=== PATIENT | female | born 1975 | race American Indian/Alaskan Native ===

== ENCOUNTER 2022-01-24 22:24 | Emergency (ER) | payer MEDICAID ==
--- NOTE | 2022-01-25 08:29 | Emergency Department Report ---
ED General Adult HPI - General Chief complaint: Dyspnea/Respdistress Stated complaint: WEAK/COLD SWEATS/CHEST PAIN PUI?: No Time Seen by Provider: 01/25/22 08:14 Source: patient Mode of arrival: Ambulatory Limitations: No Limitations - History of Present Illness Initial comments: Ms. Boykin is a 46-year-old -Stateless female that comes to the emergency room complaining of feeling weak. She states that she lives in a hotel. She endorses smoking. She has been sleeping since arrival in the ER which is now been several hours. She is ambulatory, nonfocal, no acute distress with normal vital signs. She denies fever or chills. She denies cough. Patient denies any chest pain. She denies shortness of breath. -: Gradual, hour(s) - Related Data Allergies Allergy/AdvReac Type Severity Reaction Status Date / Time Penicillins Allergy Hives Verified 01/25/22 00:37 ED Review of Systems ROS: Stated complaint: WEAK/COLD SWEATS/CHEST PAIN Other details as noted in HPI Comment: All other systems reviewed and negative ED Past Medical Hx - Past Medical History Previous Medical History?: Yes Hx Pulmonary Embolism: Yes Hx Asthma: Yes Additional medical history: CLOT IN THE LEGS in 2019. She has been taken off her Eliquis. - Surgical History Past Surgical History?: Yes Additional Surgical History: LEFT LEG SURGERY - Family History Family history: no significant - Social History Smoking Status: Current Every Day Smoker Substance Use Type: None ED Physical Exam - General Limitations: No Limitations General appearance: alert, in no apparent distress - Head Head exam: Present: atraumatic, normocephalic - Eye Eye exam: Present: normal appearance - ENT ENT exam: Present: mucous membranes moist - Neck Neck exam: Present: normal inspection - Respiratory Respiratory exam: Present: normal lung sounds bilaterally. Absent: respiratory distress - Cardiovascular Cardiovascular Exam: Present: regular rate, normal rhythm. Absent: systolic murmur, diastolic murmur, rubs, gallop - GI/Abdominal GI/Abdominal exam: Present: soft, normal bowel sounds - Extremities Exam Extremities exam: Present: normal inspection - Back Exam Back exam: Present: normal inspection - Neurological Exam Neurological exam: Present: alert, oriented X3 - Psychiatric Psychiatric exam: Present: normal affect, normal mood - Skin Skin exam: Present: warm, dry, intact, normal color. Absent: rash ED Course Vital Signs 01/25/22 01/25/22 01/25/22 00:31 08:34 11:54 Temperature 98.0 F Pulse Rate 80 78 82 Respiratory 18 16 Rate Blood Pressure 146/91 Blood Pressure 140/88 140/80 [Right] O2 Sat by Pulse 100 100 100 Oximetry ED Medical Decision Making - Lab Data Result diagrams: 01/25/22 08:49 01/25/22 08:49 - EKG Data -: EKG Interpreted by Sc EKG shows normal: sinus rhythm Rate: normal - EKG Data When compared to previous EKG there are: no significant change Interpretation: no acute changes - Radiology Data Radiology results: report reviewed, image reviewed No acute process - Medical Decision Making Lab Results 01/25/22 01/25/22 01/25/22 Range/Units 08:49 08:49 Unknown WBC 3.5 L (4.5-11.0) K/mm3 RBC 4.24 (3.65-5.03) M/mm3 Hgb 9.1 L (10.1-14.3) gm/dl Hct 30.1 L (30.3-42.9) % MCV 71 L (79-97) fl MCH 21 L (28-32) pg MCHC 30 (30-34) % RDW 16.7 H (13.2-15.2) % Plt Count 305 (140-440) K/mm3 Lymph % (Auto) 18.5 (13.4-35.0) % Davidson % (Auto) 15.1 H (0.0-7.3) % Eos % (Auto) 6.8 H (0.0-4.3) % Baso % (Auto) 0.6 (0.0-1.8) % Lymph # (Auto) 0.6 L (1.2-5.4) K/mm3 Davidson # (Auto) 0.5 (0.0-0.8) K/mm3 Eos # (Auto) 0.2 (0.0-0.4) K/mm3 Baso # (Auto) 0.0 (0.0-0.1) K/mm3 Seg Neutrophils % 59.0 (40.0-70.0) % Seg Neutrophils # 2.1 (1.8-7.7) K/mm3 Sodium 142 (137-145) mmol/L Potassium 3.9 (3.6-5.0) mmol/L Chloride 106.3 (98-107) mmol/L Carbon Dioxide 25 (22-30) mmol/L Anion Gap 15 mmol/L BUN 5 L (7-17) mg/dL Creatinine 0.8 (0.6-1.2) mg/dL Estimated GFR > 60 ml/min BUN/Creatinine Ratio 6 % Glucose 84 (65-100) mg/dL Calcium 9.4 (8.4-10.2) mg/dL Total Bilirubin 0.30 (0.1-1.2) mg/dL AST 23 (5-40) units/L ALT 17 (7-56) units/L Alkaline Phosphatase 72 (35-129) units/L Total Creatine Kinase 305 H (30-135) units/L CK-MB (CK-2) 2.6 (0.0-4.0) ng/mL CK-MB (CK-2) Rel Index 0.8 (0-4) Troponin T < 0.010 (0.00-0.029) ng/mL Total Protein 7.4 (6.3-8.2) g/dL Albumin 4.3 (3.9-5) g/dL Albumin/Globulin Ratio 1.4 % Urine Color Colorless (Yellow) Urine Turbidity Clear (Clear) Urine pH 6.0 (5.0-7.0) Ur Specific [place] 1.001 L (1.003-1.030) Urine Protein <15 mg/dl (Negative) mg/dL Urine Glucose (UA) Neg (Negative) mg/dL Urine Ketones Neg (Negative) mg/dL Urine Blood Neg (Negative) Urine Nitrite Neg (Negative) Urine Bilirubin Neg (Negative) Urine Urobilinogen < 2.0 (<2.0) mg/dL Ur Leukocyte Esterase Neg (Negative) Urine WBC (Auto) 1.0 (0.0-6.0) /HPF Urine RBC (Auto) 1.0 (0.0-6.0) /HPF U Epithel Cells (Auto) 3.0 (0-13.0) /HPF Vital Signs 01/25/22 01/25/22 00:31 08:34 Temperature 98.0 F Pulse Rate 80 78 Respiratory 18 16 Rate Blood Pressure 146/91 Blood Pressure 140/88 [Right] O2 Sat by Pulse 100 100 Oximetry EKG noted. X-ray noted. Labs noted. Patient has slept the entire time being in the emergency room. She has had no complaints. She has been pain-free since prior to her arrival in [facility]. I suspect there is a component of malingering. I have given patient a list of shelters. Patient is taking p.o. Patient being discharged home with discharge plan of care including diet, activity, medications and follow-up. She has been given primary care referral. She verbalizes understanding of plan of care - Differential Diagnosis URI versus ACS Critical care attestation.: If time is entered above; I have spent that time in minutes in the direct care of this critically ill patient, excluding procedure time. ED Disposition Clinical Impression: Malaise, Malingering, Elevated CK, Homelessness Disposition: 01 HOME / SELF CARE / HOMELESS Is pt being admited?: No Does the pt Need Aspirin: No Condition: Stable Instructions: Fatigue, Weakness, [id number] Additional Instructions: Stay well-hydrated with water. Follow-up with PCP. Have given you referral below. Diet and activity as tolerated Motrin or Tylenol for pain I provided you a list of shelters for lodging. Referrals: MONALISA LUIS MD [Staff Physician] - 3-5 Days Forms: Work/School Release Form(ED) Time of Disposition: 11:24
[2022-01-25 09:07] LABS: Basophils % (Auto) 0.6 % (0.0-1.8); Eosinophils # (Auto) 0.2 K/mm3 (0.0-0.4); Eosinophils % (Auto) 6.8 % (0.0-4.3); Hematocrit 30.1 % (30.3-42.9); Hemoglobin 9.1 gm/dl (10.1-14.3); Lymphocytes # (Auto) 0.6 K/mm3 (1.2-5.4); Lymphocytes % (Auto) 18.5 % (13.4-35.0); Mean Corpuscular HGB Conc 30 % (30-34); Mean Corpuscular Volume 71 fl (79-97); Monocytes # (Auto) 0.5 K/mm3 (0.0-0.8); Monocytes % (Auto) 15.1 % (0.0-7.3); Platelet Count 305 K/mm3 (140-440); Red Blood Count 4.24 M/mm3 (3.65-5.03); Red Cell Distribution Width 16.7 % (13.2-15.2)
--- NOTE | 2022-01-25 09:09 | XRay Report ---
CHEST 2 VIEWS INDICATION / CLINICAL INFORMATION: cp. COMPARISON: None available. FINDINGS: SUPPORT DEVICES: None. HEART / MEDIASTINUM: No significant abnormality. LUNGS / PLEURA: No significant pulmonary or pleural abnormality. No pneumothorax. ADDITIONAL FINDINGS: No significant additional findings. IMPRESSION: 1. No acute findings. Signer Name: Julius Hutchins MD Signed: 01/25/2022 9:05 AM Workstation Name: [id number]
[2022-01-25 09:26] LABS: Creatine Kinase MB 2.6 ng/mL (0.0-4.0)
[2022-01-25 09:28] LABS: Alanine Aminotransferase 17 units/L (7-56); Albumin 4.3 g/dL (3.9-5); BUN/Creatinine Ratio 6; Blood Urea Nitrogen 5 mg/dL (7-17); Calcium 9.4 mg/dL (8.4-10.2); Hemolysis Index 11
[2022-01-25 11:00] LABS: Bilirubin,Urine NEG (Negative); Blood,Urine NEG (Negative); Color,Urine Colorless (Yellow); Protein,Urine <15 mg/dL mg/dL (Negative); Urobilinogen,Urine < 2.0 mg/dL (<2.0)
[2022-01-25 11:55] VITALS: BP 140/80
--- NOTE | 2022-01-26 09:57 | Electrocardiograph Report ---
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
== END 2022-01-25 11:56 | disposition home or self-care (01) ==
LOC: ED 22:24
DX: R53.81 Other malaise (principal); Z76.5 Malingerer [conscious simulation]; R74.8 Abnormal levels of other serum enzymes; Z59.00 Homelessness unspecified; F17.200 Nicotine dependence, unspecified, uncomplicated; J45.909 Unspecified asthma, uncomplicated; Z88.0 Allergy status to penicillin
CPT/HCPCS: 36415; 71046; 80053; 81001; 82550; 82553; 84484; 85025; 93005; 99284